=== PATIENT | male | born 1975 | race Caucasian/White ===

== ENCOUNTER 2021-01-14 12:46 | Emergency (ER) | payer BC ==
[~2021-01-14] VITALS: Ht 177.8 cm; Wt 89.2 kg
[2021-01-14 12:47] VITALS: BP 135/87
--- NOTE | 2021-01-14 15:03 | IPNPDOC ---
Subjective Date Seen The patient was seen on 01/14/21. Subjective Chief Complaint/HPI 45 year old male with past medical history of Hypertension presented to ED with 2 days h/o body aches, cold, sinus pain. He did a home test for COVID yesterday which was positive. Came to ED at [facility] encouragement of his who is a infection control nurse at [employer] for getting Monoclonal antibody. COVID test was repeated which was also positive. He is Obese with BMI of 28 adn has hypertension so meets the criteria for Monoclonal antibodies. This was discussed with patient and he would like to get the monoclonal antibodies. Patient was consented. Constitutional: Reports: Chills, Malaise, Fatigue Eyes: Denies: Pain, Vision change ENT: Reports: Head Aches, Sinus Congestion, Sore Throat Skin: Denies: Rash, Lesions, Breakdown Pulmonary: Reports: Cough; Denies: Dyspnea Cardiovascular: Denies: Chest Pain, Palpitations, Orthopnea, Paroxysmal Noc. Dyspnea, Lt Headedness Gastrointestinal: Denies: Nausea, Vomiting, Abdominal Pain, Diarrhea, Constipation Genitourinary: Denies: Dysuria, Frequency, Incontinence, Retention Hematologic: Denies: Bruising, Bleeding Excessively Musculoskeletal: Denies: Neck Pain, Back Pain, Joint Pain, Muscle Pain, Spasms Objective Physical Examination General Exam: Positive: Alert, Cooperative, No Acute Distress Eye Exam: Positive: PERRLA, Conjunctiva & lids normal, EOMI; Negative: Sclera icteric ENT Exam: Positive: Atraumatic, Mucous membr. moist/pink, Pharynx Normal Chest Exam: Positive: Clear to auscultation, Normal air movement Heart Exam: Positive: Rate Normal, Regular Rhythm, Normal S1, Normal S2; Negative: Murmurs, Rubs Abdomen Exam: Positive: Normal bowel sounds, Soft; Negative: Tenderness, Hepatospenomegaly Extremity Exam: Positive: Normal pulses; Negative: Clubbing, Cyanosis, Edema Skin Exam: Positive: Nl turgor and temperature; Negative: Rash, Breakdown Psych Exam: Positive: Memory Intact, Oriented x 3 Assessment /Plan Assessment COVID -19 infection with mild symptoms. with BMI of 28 and hypertension For Monoclonal antibody administration. Plan/VTE VTE Prophylaxis Ordered?: No VS, I&O, 24H, Fishbone Vital Signs/I&O Vital Signs Date Time Temp Pulse Resp B/P (MAP) Pulse Ox O2 Delivery O2 Flow Rate FiO2 01/14/21 12:47 97.9 94 18 135/87 (103) 97 Room Air Alise Tineo MD Jan 14, 2021 14:09
== END 2021-01-14 15:10 | disposition home or self-care (01) ==
LOC: M ED 12:46
DX: U07.1 COVID-19 (principal); I10 Essential (primary) hypertension; E66.9 Obesity, unspecified

== ENCOUNTER 2021-01-15 12:40 | Outpatient (CLI) | payer BC ==
[~2021-01-15] VITALS: Ht 177.8 cm; Wt 92.0 kg
[~2021-01-15 12:40] MED LIST: ACETAMINOPHEN TAB 650MG DOSE (2X325MG) PO PRN; ALBUTEROL 90 MCG/ACT 8GM HFA INHALER INH PRN; ALBUTEROL SULFATE 2.5 MG/0.5 ML INH NEB SOLN INH PRN; CASIRIVIMAB (REGN10933) 600 MG, IMDEVIMAB (REGN10987) 600 MG in NS 250 ML IV ONE; CASIRIVIMAB/IMDEVIMAB 1,200 MG in NS 250 ML IV ONE; EPINEPHrine INJ 1 MG/ML 1ML AMP IM PRN; NS 1,000 ML IV SCH; diphenhydrAMINE 50MG/ML VIAL (J1200) IV PRN; methylPREDNISolone 125MG 2ML VIAL IV PRN
[2021-01-15 13:27] VITALS: BP 127/81
[2021-01-15 13:57] VITALS: BP 109/76
[2021-01-15 14:27] VITALS: BP 123/80
[2021-01-15 15:27] VITALS: BP 135/87
== END 2021-01-15 15:27 | disposition home or self-care (01) ==
LOC: M OPCLI4 12:40
PROVIDERS: ATTEND Emergency Medicine
DX: U07.1 COVID-19 (principal)

== ENCOUNTER → 2025-02-05 | Outpatient (CLI) | payer OTHER ==
[2025-02-05 15:09] LABS: BASO # 0.1 10^3/uL (0.0-0.2); BASO % 1.3 % (0.0-1.0); EOS # 0.1 10^3/uL (0.0-0.5); EOS % 1.3 % (0.0-3.0); LYMPH # 1.6 10^3/uL (1.5-5.0); LYMPH % 25.6 % (24.0-44.0); MONO # 0.8 10^3/uL (0.0-0.8); MONO % 12.2 % (2.0-8.0); NEUTROPHILS # 3.8 10^3/uL (1.5-8.5); NEUTROPHILS % 59.3 % (36.0-66.0); PLATELET COUNT, AUTOMATED 353 10^3/uL (150-450)
[2025-02-05 15:42] LABS: ALT/SGPT 69 U/L (7.0-40); AST/SGOT 46 U/L (<34); CALCIUM LEVEL 9.4 MG/DL (8.5-10.1); CARBON DIOXIDE LEVEL 29 MMOL/L (20-31); CHLORIDE LEVEL 105 MMOL/L (98-107); CREATININE FOR GFR 0.81 MG/DL (0.70-1.30); GLOMERULAR FILTRATION RATE > 90.0 (>60); POTASSIUM SERUM 4.6 MMOL/L (3.5-5.1); SODIUM LEVEL 141 MMOL/L (136-145)
[2025-02-11 18:38] LABS: ACHR BINDING ANTIBODY < 0.30 nmol/L (<=0.30); ACHR BLOCKING AB < 15 (<15)
== END ==
LOC: M PLALAB 09:25
PROVIDERS: ATTEND Psychiatry & Neurology Neurology
DX: G70.00 Myasthenia gravis without (acute) exacerbation (principal); R47.1 Dysarthria and anarthria